=== PATIENT | male | born 1935 | race Caucasian/White ===

== ENCOUNTER 2023-09-02 17:00 | Inpatient (IN) | payer OTHER, MEDICAID ==
[~2023-09-02] VITALS: Ht 167.6 cm; Wt 63.5 kg
[2023-09-02 17:00] VITALS: BP_SYST 101; PULSE 70; RESP 18; TEMP 97.9; O2SAT 94
[~2023-09-02 17:00] MED LIST: cefTRIAXone 1 GM in D5W 50 ML IV SCH
[2023-09-02] MEDS: ASPIRIN 325 MG TABLET (ECOTRIN) PO ONE (17:10)
[2023-09-02 17:52] LABS: BASOPHILS # (AUTO) 0.1 K/uL (0.0-0.2); BASOPHILS % (AUTO) 0.7 % (0.0-2.0); EOSINOPHILS # (AUTO) 0.3 K/uL (0.0-0.4); EOSINOPHILS % (AUTO) 3.6 % (0.0-4.0); HEMATOCRIT 26.8 % (36-54); HEMOGLOBIN 8.5 g/dL (14.0-18.0); LYMPHOCYTES # (AUTO) 1.3 K/uL (1.0-5.5); LYMPHOCYTES % (AUTO) 18.7 % (20.5-51.5); MEAN CORPUSCULAR HEMOGLOBIN 27 pg (27-31); MEAN CORPUSCULAR HGB CONC 32 % (32-36); MEAN CORPUSCULAR VOLUME 85 fL (79.0-98.0); MONOCYTES # (AUTO) 0.6 K/uL (0.0-1.0); MONOCYTES % (AUTO) 8.2 % (1.7-9.3); NEUTROPHILS % (AUTO) 68.8 % (40.0-70.0); PLATELET COUNT (AUTO) 269 K/uL (130-430); RED BLOOD CELL COUNT(AUTO) 3.14 MIL/uL (4.2-6.2); RED CELL DISTRIBUTION WIDTH 17.6 % (9.0-15.0); WHITE BLOOD COUNT (AUTO) 7.2 K/uL (4.8-10.8)
[2023-09-02 18:11] LABS: ANION GAP 3 (5-15); CALCIUM 8.8 mg/dL (8.4-11.0); CARBON DIOXIDE 34 mmol/L (23-29); CHLORIDE 98 mmol/L (98-107); CREATININE 0.94 mg/dL (0.55-1.30); GLUCOSE 137 mg/dL (74-106); POTASSIUM 4.9 mmol/L (3.5-5.1); SODIUM SERUM 135 mmol/L (136-145); UREA NITROGEN, BLOOD 45 mg/dL (8-21)
[2023-09-02] MEDS ORDERED: ACETAMINOPHEN 325 MG TABLET PO PRN (19:45)
[2023-09-02] MEDS ORDERED: HYDROcodone/ACETAMIN 5-325 MG TAB (NORCO/ VICODIN) PO PRN (19:45)
[2023-09-02] MEDS ORDERED: ONDANSETRON HCL 4 MG/2 ML VIAL IVP PRN (19:45)
[2023-09-02] MEDS ORDERED: HYDROcodone/ACETAMIN 10-325 MG TAB PO PRN (19:45)
[2023-09-02] MEDS ORDERED: DAPA10TA7 PO (20:15)
[2023-09-02] MEDS ORDERED: FURO40TA5 PO (20:15)
[2023-09-02] MEDS ORDERED: ATOR20TA64 PO (20:15)
[2023-09-02] MEDS ORDERED: BICA50TA7 PO (20:15)
[2023-09-02] MEDS ORDERED: FINA5TAB11 PO (20:15)
[2023-09-02] MEDS ORDERED: NITR0.4T47 SL (20:15)
[2023-09-02] MEDS ORDERED: ENZA80TA PO (20:15)
[2023-09-02] MEDS ORDERED: HALOBETASOL TP (20:15)
[2023-09-02] MEDS ORDERED: SACU1TAB PO (20:15)
[2023-09-02] MEDS ORDERED: ASPI-1393 PO (20:15)
[2023-09-02] MEDS ORDERED: PARO-41 PO (20:15)
[2023-09-02] MEDS ORDERED: INSU100I56 SUBCUT (20:15)
[2023-09-02] MEDS ORDERED: FAMO20TA8 PO (20:15)
[2023-09-02] MEDS ORDERED: BISA10SU61 RC (20:22)
[2023-09-02] MEDS ORDERED: METO25TA6 PO (20:22)
[2023-09-02] MEDS ORDERED: ACET325T PO (20:22)
[2023-09-02] MEDS ORDERED: SACC250C3 PO (20:22)
[2023-09-02] MEDS ORDERED: LORA-259 PO (20:22)
[2023-09-02] MEDS ORDERED: SENN8.6T19 PO (20:22)
[2023-09-02] MEDS ORDERED: IPRA4AER INH (20:22)
[2023-09-02] MEDS ORDERED: DOCU-144 PO (20:22)
[2023-09-02] MEDS ORDERED: MOM PO (20:22)
[2023-09-02] MEDS ORDERED: ACET-73 PO (20:22)
[2023-09-02 20:28] VITALS: BP_SYST 112; PULSE 65; O2SAT 99
[2023-09-02] MEDS: FUROSEMIDE 40 MG/4 ML VIAL IVP ONE (20:52)
[2023-09-02] MEDS ORDERED: AZITHROMYCIN 500 MG in NS 250 ML IV SCH (21:00)
[2023-09-02] MEDS: FUROSEMIDE 40 MG/4 ML VIAL IVP SCH (21:00)
[2023-09-02] MEDS ORDERED: AZITHROMYCIN 500 MG/VIAL (ZITHROMAX) IV ONE ×2 (21:24→21:27)
[2023-09-02] MEDS: AZITHROMYCIN 500 MG in NS 250 ML IV SCH (21:57)
[2023-09-02] MEDS: MORPHINE 2 MG/ML INJ. SYRINGE IVP PRN (23:15)
[2023-09-02] MEDS ORDERED: LORazepam 1 MG TABLET PO PRN (23:15)
[2023-09-03] VITALS (11 sets, daily range): BP systolic 120–139; PULSE 70–79; RESP 19–22; TEMP 97.2–97.8; O2SAT 95–99
[2023-09-03 05:45] LABS: BASOPHILS % (AUTO) 0.7 % (0.0-2.0); EOSINOPHILS # (AUTO) 0.2 K/uL (0.0-0.4); EOSINOPHILS % (AUTO) 3.2 % (0.0-4.0); HEMOGLOBIN 8.1 g/dL (14.0-18.0); LYMPHOCYTES # (AUTO) 1.3 K/uL (1.0-5.5); LYMPHOCYTES % (AUTO) 20.6 % (20.5-51.5); MEAN CORPUSCULAR HEMOGLOBIN 27 pg (27-31); MEAN CORPUSCULAR HGB CONC 31 % (32-36); MEAN CORPUSCULAR VOLUME 87 fL (79.0-98.0); MONOCYTES # (AUTO) 0.6 K/uL (0.0-1.0); MONOCYTES % (AUTO) 9.1 % (1.7-9.3); NEUTROPHILS # (AUTO) 4.1 K/uL (1.8-7.7); NEUTROPHILS % (AUTO) 66.4 % (40.0-70.0); PLATELET COUNT (AUTO) 256 K/uL (130-430); RED BLOOD CELL COUNT(AUTO) 2.98 MIL/uL (4.2-6.2); RED CELL DISTRIBUTION WIDTH 18.1 % (9.0-15.0); WHITE BLOOD COUNT (AUTO) 6.1 K/uL (4.8-10.8)
[2023-09-03 06:14] LABS: ALANINE AMINOTRANSFERASE 11 U/L (12-78); ALBUMIN 2.6 g/dL (3.4-4.8); ANION GAP 7 (5-15); ASPARTATE AMINOTRANSFERASE 24 U/L (10-37); CALCIUM 8.8 mg/dL (8.4-11.0); CARBON DIOXIDE 33 mmol/L (23-29); CHLORIDE 98 mmol/L (98-107); CREATININE 0.75 mg/dL (0.55-1.30); GLUCOSE 120 mg/dL (74-106); POTASSIUM 5.7 mmol/L (3.5-5.1); SODIUM SERUM 138 mmol/L (136-145); TOTAL BILIRUBIN 0.5 mg/dL (0.0-1.0); TOTAL PROTEIN, SERUM 6.7 g/dL (6.4-8.3); UREA NITROGEN, BLOOD 46 mg/dL (8-21)
[2023-09-03] MEDS: cefTRIAXone 1 GM in D5W 50 ML IV SCH ×2 (09:17)
[2023-09-03] MEDS: ASPIRIN 81 MG TAB.CHEW PO SCH (09:18)
[2023-09-03] MEDS ORDERED: CARVEDILOL 6.25 MG TABLET (COREG) PO ONE (09:30)
[2023-09-03] MEDS ORDERED: NITROGLYCERIN 0.4 MG TAB.SUBL SL SCH (09:45)
[2023-09-03] MEDS ORDERED: SACUBITRIL/VALSARTAN 24 MG-26 MG 1 TABLET PO ONE (10:00)
[2023-09-03] MEDS ORDERED: METOPROLOL TARTRATE 25 MG TABLET PO ONE (10:00)
[2023-09-03] MEDS: ATORVASTATIN 20 MG TABLET PO ONE (10:58)
[2023-09-03] MEDS: FINASTERIDE 5 MG TABLET (PROSCAR) PO ONE (10:58)
[2023-09-03] MEDS: PARoxetine HCL 20 MG TABLET PO ONE (10:58)
[2023-09-03] MEDS: LOSARTAN POTASSIUM 50 MG TABLET (COZAAR) PO ONE (10:59)
[2023-09-03] MEDS: ALBUTEROL SULFATE 0.083% 2.5 MG/3 ML VIAL.NEB INH SCH (11:18)
[2023-09-03] MEDS: SACUBITRIL/VALSARTAN 24 MG-26 MG 1 TABLET PO ONE (11:56)
[2023-09-03 14:31] LABS: BILIRUBIN,URINE NEGATIVE (NEGATIVE); BLOOD, URINE 1+ (NEGATIVE); CLARITY/URINE SL CLOUDY (CLEAR); GLUCOSE,URINE NEGATIVE (NEGATIVE); KETONES,URINE NEGATIVE (NEGATIVE); LEUKOCYTE ESTERASE ,URINE 3+ (NEGATIVE); NITRITE, URINE NEGATIVE (NEGATIVE); PH,URINE 5.5 (5.0-8.0); PROTEIN URINE NEGATIVE (NEGATIVE); UROBILINOGEN,URINE 0.2 (0.2-1.0)
[2023-09-03 14:39] LABS: COLOR,URINE STRAW (YELLOW)
[2023-09-03 14:42] LABS: BACTERIA,URINE None Seen /HPF (None Seen); WBC,URINE 20-50 /HPF (0-3); YEAST,URINE Few /HPF (None Seen)
[2023-09-03] MEDS: SODIUM ZIRCONIUM CYCLOSILICATE 10 GM POWD.PACK PO ONE (19:14)
[2023-09-03] MEDS ORDERED: CARVEDILOL 6.25 MG TABLET (COREG) PO SCH (21:00)
[2023-09-03] MEDS: SACUBITRIL/VALSARTAN 24 MG-26 MG 1 TABLET PO SCH (21:11)
[2023-09-04] VITALS (13 sets, daily range): BP systolic 99–115; PULSE 72–88; RESP 16–20; TEMP 97.5–98.4; O2SAT 93–100
[2023-09-04 05:30] LABS: BASOPHILS % (AUTO) 0.5 % (0.0-2.0); EOSINOPHILS # (AUTO) 0.2 K/uL (0.0-0.4); EOSINOPHILS % (AUTO) 3.8 % (0.0-4.0); HEMATOCRIT 27.8 % (36-54); HEMOGLOBIN 8.7 g/dL (14.0-18.0); LYMPHOCYTES # (AUTO) 1.2 K/uL (1.0-5.5); LYMPHOCYTES % (AUTO) 19.7 % (20.5-51.5); MEAN CORPUSCULAR HEMOGLOBIN 27 pg (27-31); MEAN CORPUSCULAR HGB CONC 31 % (32-36); MEAN CORPUSCULAR VOLUME 87 fL (79.0-98.0); MONOCYTES # (AUTO) 0.5 K/uL (0.0-1.0); MONOCYTES % (AUTO) 8.7 % (1.7-9.3); NEUTROPHILS # (AUTO) 4.2 K/uL (1.8-7.7); NEUTROPHILS % (AUTO) 67.3 % (40.0-70.0); PLATELET COUNT (AUTO) 268 K/uL (130-430); RED CELL DISTRIBUTION WIDTH 17.5 % (9.0-15.0); WHITE BLOOD COUNT (AUTO) 6.3 K/uL (4.8-10.8)
[2023-09-04 05:57] LABS: ALANINE AMINOTRANSFERASE 8 U/L (12-78); ALBUMIN 2.5 g/dL (3.4-4.8); ANION GAP 7 (5-15); ASPARTATE AMINOTRANSFERASE 14 U/L (10-37); CARBON DIOXIDE 35 mmol/L (23-29); CHLORIDE 98 mmol/L (98-107); GLUCOSE 141 mg/dL (74-106); POTASSIUM 3.8 mmol/L (3.5-5.1); SODIUM SERUM 140 mmol/L (136-145); TOTAL BILIRUBIN 0.4 mg/dL (0.0-1.0); UREA NITROGEN, BLOOD 41 mg/dL (8-21)
[2023-09-04] MEDS: LOSARTAN POTASSIUM 50 MG TABLET (COZAAR) PO SCH (09:00)
[2023-09-04] MEDS ORDERED: METOPROLOL TARTRATE 25 MG TABLET PO SCH (09:00)
[2023-09-04] MEDS: ENOXAPARIN SODIUM 40 MG/0.4 ML SYRINGE SUBCUT SCH (10:20)
[2023-09-04] MEDS: PARoxetine HCL 20 MG TABLET PO SCH (10:21)
[2023-09-04] MEDS: ATORVASTATIN 20 MG TABLET PO SCH (10:21)
[2023-09-04] MEDS: FINASTERIDE 5 MG TABLET (PROSCAR) PO SCH (10:24)
[2023-09-04] MEDS: IPRATROPIUM BROM 0.5 MG/2.5 ML VIAL.NEB (ATROVENT) INH PRN (19:36)
[2023-09-05] VITALS (13 sets, daily range): BP systolic 101–123; PULSE 80–89; RESP 16–18; TEMP 96–97.8; O2SAT 93–99
[2023-09-05] MEDS: FUROSEMIDE 40 MG/4 ML VIAL IVP SCH (14:10)
[2023-09-05] MEDS ORDERED: metroNIDAZOLE 500 mg/NS 100 ML IV SCH (14:45)
[2023-09-05] MEDS: PIPERACILLIN/TAZO 3.375 GM in D5W 50 ML IV SCH (15:32)
[2023-09-06] VITALS (13 sets, daily range): BP systolic 102–111; PULSE 66–89; RESP 16–18; TEMP 96.7–98.5; O2SAT 94–100
[2023-09-06 06:55] LABS: BASOPHILS % (AUTO) 0.7 % (0.0-2.0); EOSINOPHILS # (AUTO) 0.4 K/uL (0.0-0.4); EOSINOPHILS % (AUTO) 7.9 % (0.0-4.0); HEMATOCRIT 26.3 % (36-54); HEMOGLOBIN 8.5 g/dL (14.0-18.0); LYMPHOCYTES # (AUTO) 1.2 K/uL (1.0-5.5); LYMPHOCYTES % (AUTO) 23.5 % (20.5-51.5); MEAN CORPUSCULAR HEMOGLOBIN 27 pg (27-31); MEAN CORPUSCULAR HGB CONC 32 % (32-36); MEAN CORPUSCULAR VOLUME 85 fL (79.0-98.0); MONOCYTES # (AUTO) 0.5 K/uL (0.0-1.0); MONOCYTES % (AUTO) 9.4 % (1.7-9.3); NEUTROPHILS # (AUTO) 2.9 K/uL (1.8-7.7); NEUTROPHILS % (AUTO) 58.5 % (40.0-70.0); PLATELET COUNT (AUTO) 282 K/uL (130-430); RED BLOOD CELL COUNT(AUTO) 3.09 MIL/uL (4.2-6.2); RED CELL DISTRIBUTION WIDTH 17.2 % (9.0-15.0); WHITE BLOOD COUNT (AUTO) 4.9 K/uL (4.8-10.8)
[2023-09-06 07:19] LABS: ALANINE AMINOTRANSFERASE 8 U/L (12-78); ALBUMIN 2.3 g/dL (3.4-4.8); ANION GAP 4 (5-15); ASPARTATE AMINOTRANSFERASE 14 U/L (10-37); CARBON DIOXIDE 38 mmol/L (23-29); CHLORIDE 97 mmol/L (98-107); CREATININE 0.76 mg/dL (0.55-1.30); GLUCOSE 103 mg/dL (74-106); POTASSIUM 3.4 mmol/L (3.5-5.1); SODIUM SERUM 139 mmol/L (136-145); TOTAL BILIRUBIN 0.5 mg/dL (0.0-1.0); TOTAL PROTEIN, SERUM 6.5 g/dL (6.4-8.3); UREA NITROGEN, BLOOD 29 mg/dL (8-21)
[2023-09-06] MEDS: VANCOMYCIN HCL 750 MG in NS 250 ML IV SCH (16:58)
[2023-09-07] VITALS (11 sets, daily range): BP systolic 91–116; PULSE 64–79; RESP 16–18; TEMP 97.9–98.8; O2SAT 93–100
[2023-09-07] MEDS: CARVEDILOL 3.125 MG TABLET (COREG) PO SCH (21:00)
[2023-09-07] MEDS: MILK OF MAGNESIA 30 ML UDC PO PRN (21:49)
[2023-09-07] MEDS: FUROSEMIDE 40 MG TABLET PO SCH (21:50)
[2023-09-08] VITALS (9 sets, daily range): BP systolic 98–121; PULSE 61–86; RESP 15–18; TEMP 97.7–98.5; O2SAT 92–96
[2023-09-08 05:13] LABS: BASOPHILS % (AUTO) 0.6 % (0.0-2.0); EOSINOPHILS # (AUTO) 0.5 K/uL (0.0-0.4); HEMATOCRIT 25.4 % (36-54); HEMOGLOBIN 8.1 g/dL (14.0-18.0); LYMPHOCYTES # (AUTO) 1.3 K/uL (1.0-5.5); LYMPHOCYTES % (AUTO) 21.2 % (20.5-51.5); MEAN CORPUSCULAR HEMOGLOBIN 27 pg (27-31); MEAN CORPUSCULAR HGB CONC 32 % (32-36); MEAN CORPUSCULAR VOLUME 85 fL (79.0-98.0); MONOCYTES # (AUTO) 0.5 K/uL (0.0-1.0); NEUTROPHILS # (AUTO) 3.7 K/uL (1.8-7.7); NEUTROPHILS % (AUTO) 61.2 % (40.0-70.0); PLATELET COUNT (AUTO) 284 K/uL (130-430); RED BLOOD CELL COUNT(AUTO) 2.98 MIL/uL (4.2-6.2); RED CELL DISTRIBUTION WIDTH 17.3 % (9.0-15.0); WHITE BLOOD COUNT (AUTO) 6.1 K/uL (4.8-10.8)
[2023-09-08 05:42] LABS: ANION GAP 5 (5-15); CALCIUM 9.1 mg/dL (8.4-11.0); CARBON DIOXIDE 35 mmol/L (23-29); CHLORIDE 98 mmol/L (98-107); CREATININE 0.79 mg/dL (0.55-1.30); GLUCOSE 136 mg/dL (74-106); POTASSIUM 4.2 mmol/L (3.5-5.1); SODIUM SERUM 138 mmol/L (136-145); UREA NITROGEN, BLOOD 32 mg/dL (8-21)
[2023-09-08] MEDS ORDERED: cefTRIAXone 1 GM in D5W 50 ML IV SCH (09:45)
[2023-09-08] MEDS: SULFAMETHOXAZOLE/TRIMETHOPR DS 1 TABLET PO ONE (10:30)
[2023-09-08] MEDS ORDERED: TORS20TA23 PO (10:57)
[2023-09-08] MEDS ORDERED: SULF1TAB47 PO (10:57)
[2023-09-08] MEDS ORDERED: SULFAMETHOXAZOLE/TRIMETHOPR DS 1 TABLET PO SCH (21:00)
== END 2023-09-08 16:45 | DRG 193 ==
LOC: SED 17:00 → STU 19:44 → SMU 09-05 20:18
PROVIDERS: ADMIT Family Medicine; ATTEND Family Medicine
DX: J18.9 Pneumonia, unspecified organism (principal); E43 Unspecified severe protein-calorie malnutrition; I50.43 Acute on chronic combined systolic (congestive) and diastolic (congestive) heart failure; J96.01 Acute respiratory failure with hypoxia; N39.0 Urinary tract infection, site not specified; J90 Pleural effusion, not elsewhere classified; I11.0 Hypertensive heart disease with heart failure; E11.9 Type 2 diabetes mellitus without complications; F03.90 Unspecified dementia, unspecified severity, without behavioral disturbance, psychotic disturbance, mood disturbance, and anxiety; D64.9 Anemia, unspecified; Z68.22 Body mass index [BMI] 22.0-22.9, adult; E87.5 Hyperkalemia; E78.5 Hyperlipidemia, unspecified; I25.5 Ischemic cardiomyopathy; I25.10 Atherosclerotic heart disease of native coronary artery without angina pectoris; Z95.1 Presence of aortocoronary bypass graft; Z95.0 Presence of cardiac pacemaker; Z74.01 Bed confinement status
CPT/HCPCS: 36415; 71045; 76604; 80048; 80053; 80202; 81000; 81001; 81015; 82948; 83037; 83880; 84484; 85025; 87040; 87081; 87086; 87186; 92610-GN; 93005; 93306; 94070; 94640; 94664; 94760; 96365; 96375; 97110-GP; 97116-GP; 97163-GP; 97530-GP; 99285; G0378; J0456; J0696; J1650; J1940; J2270; J2543; J7050; J7060

== ENCOUNTER 2023-10-28 14:59 | Inpatient (IN) | payer OTHER, MEDICAID ==
[~2023-10-28] VITALS: Ht 165.1 cm; Wt 54.0 kg
[2023-10-28] VITALS (7 sets, daily range): BP systolic 117–135; PULSE 61–82; RESP 18–20; TEMP 97.9–98.9; O2SAT 91–98
[~2023-10-28 14:59] MED LIST changes: +ACET-73 PO; +ACET325T PO; +ASPI-1393 PO; +ATOR20TA64 PO; +BICA50TA7 PO; +BISA10SU61 RC; +DAPA10TA7 PO; +DOCU-144 PO; +ENZA80TA PO; +FAMO20TA8 PO; +FINA5TAB11 PO; +HALOBETASOL TP; +INSU100I56 SUBCUT; +IPRA4AER INH; +LORA-259 PO; +METO25TA6 PO; +MOM PO; +NITR0.4T47 SL; +PARO-41 PO; +SACC250C3 PO; +SACU1TAB PO; +SENN8.6T19 PO; +SULF1TAB47 PO; +TORS20TA23 PO; -cefTRIAXone 1 GM in D5W 50 ML IV SCH
[2023-10-28] MEDS: NACL 0.9% 1,000 ML IV ONE (15:15)
[2023-10-28] MEDS: IPRATROPIUM/ALBUTEROL SULFATE 3 ML AMPUL.NEB (DUONEB) INH ONE (15:28)
[2023-10-28 15:32] LABS: ABG O2 SAT% ESTIMATE 97.6 % (94.0-100.0); BLOOD GAS BASE EXCESS 6.9 mmol/L (-3.0-3.0); BLOOD GAS HCO3 35.1 mmol/L (21.0-27.0); BLOOD GAS PH 7.312 (7.350-7.450); BLOOD GAS PO2 113.2 mmHg (75.0-100.0)
[2023-10-28 15:35] LABS: BLOOD GAS PCO2 70.9 mmHg (32.0-45.0)
[2023-10-28 16:03] LABS: BASOPHILS % (AUTO) 0.6 % (0.0-2.0); EOSINOPHILS # (AUTO) 0.3 K/uL (0.0-0.4); EOSINOPHILS % (AUTO) 3.6 % (0.0-4.0); HEMATOCRIT 33.5 % (36-54); HEMOGLOBIN 10.6 g/dL (14.0-18.0); LYMPHOCYTES # (AUTO) 2.1 K/uL (1.0-5.5); LYMPHOCYTES % (AUTO) 27.2 % (20.5-51.5); MEAN CORPUSCULAR HEMOGLOBIN 27 pg (27-31); MEAN CORPUSCULAR HGB CONC 32 % (32-36); MEAN CORPUSCULAR VOLUME 85 fL (79.0-98.0); MONOCYTES # (AUTO) 0.6 K/uL (0.0-1.0); MONOCYTES % (AUTO) 7.3 % (1.7-9.3); NEUTROPHILS # (AUTO) 4.8 K/uL (1.8-7.7); NEUTROPHILS % (AUTO) 61.3 % (40.0-70.0); PLATELET COUNT (AUTO) 319 K/uL (130-430); RED BLOOD CELL COUNT(AUTO) 3.93 MIL/uL (4.2-6.2); RED CELL DISTRIBUTION WIDTH 18.2 % (9.0-15.0); WHITE BLOOD COUNT (AUTO) 7.8 K/uL (4.8-10.8)
[2023-10-28] MEDS: DEXAMETHASONE SOD PHOSPHATE 10 MG/ML VIAL IVP ONE (16:07)
[2023-10-28 16:29] LABS: INR 1.1 (0.80-1.20); PROTHROMBIN TIME 11.3 SECS (9.5-12.5)
[2023-10-28] MEDS ORDERED: [UNRECOGNIZED DRUG - CODE] PO (16:30)
[2023-10-28] MEDS ORDERED: FERR325T30 PO (16:30)
[2023-10-28] MEDS ORDERED: FURO20TA4 PO (16:30)
[2023-10-28] MEDS ORDERED: LACT10SO6 PO (16:30)
[2023-10-28] MEDS ORDERED: METO2.5T2 PO (16:34)
[2023-10-28] MEDS ORDERED: SENN8.6T19 PO (16:34)
[2023-10-28 16:39] LABS: ALANINE AMINOTRANSFERASE 7 U/L (12-78); ALBUMIN 2.9 g/dL (3.4-4.8); ANION GAP 5 (5-15); ASPARTATE AMINOTRANSFERASE 17 U/L (10-37); BILIRUBIN,DIRECT 0.2 mg/dL (0.0-0.3); CALCIUM 9.4 mg/dL (8.4-11.0); CARBON DIOXIDE 34 mmol/L (23-29); CHLORIDE 99 mmol/L (98-107); CREATININE 1.01 mg/dL (0.55-1.30); GLUCOSE 182 mg/dL (74-106); POTASSIUM 4.2 mmol/L (3.5-5.1); SODIUM SERUM 138 mmol/L (136-145); TOTAL BILIRUBIN 0.5 mg/dL (0.0-1.0); TOTAL PROTEIN, SERUM 8.1 g/dL (6.4-8.3); UREA NITROGEN, BLOOD 34 mg/dL (8-21)
[2023-10-28 17:29] LABS: INFLUENZA TYPE A Negative (NEGATIVE); INFLUENZA TYPE B NEGATIVE (NEGATIVE)
[2023-10-28] MEDS ORDERED: PIPERACILLIN/TAZOBACTAM 3.375 GM/VIAL (ZOSYN) IV ONE (17:31)
[2023-10-28] MEDS: PIPERACILLIN/TAZO 3.375 GM in NS 50 ML IV ONE (17:43)
[2023-10-28] MEDS: FUROSEMIDE 20 MG/2 ML VIAL IVP ONE (17:44)
[2023-10-28 18:56] LABS: BILIRUBIN,URINE NEGATIVE (NEGATIVE); BLOOD, URINE NEGATIVE (NEGATIVE); GLUCOSE,URINE NEGATIVE (NEGATIVE); KETONES,URINE NEGATIVE (NEGATIVE); LEUKOCYTE ESTERASE ,URINE 1+ (NEGATIVE); NITRITE, URINE NEGATIVE (NEGATIVE); PH,URINE 5.5 (5.0-8.0); PROTEIN URINE NEGATIVE (NEGATIVE); UROBILINOGEN,URINE 0.2 (0.2-1.0)
[2023-10-28 19:18] LABS: CLARITY/URINE SLIGHTLY HAZY (CLEAR); COLOR,URINE STRAW (YELLOW)
[2023-10-28 19:19] LABS: RBC,URINE NONE SEEN /HPF (0-3)
[2023-10-28 19:20] LABS: BACTERIA,URINE FEW /HPF (None Seen); MUCUS,URINE None Seen /LPF (None Seen); URINE AMORPHOUS URATE 1+ /HPF (None Seen)
[2023-10-28] MEDS: LORazepam 2 MG/ML VIAL IVP PRN (19:49)
[2023-10-28] MEDS ORDERED: NITROGLYCERIN 0.4 MG TAB.SUBL SL PRN (23:45)
[2023-10-28] MEDS ORDERED: NALOXONE HCL 0.4 MG/ML AMP (NARCAN) IVP PRN ×2 (23:45)
[2023-10-28] MEDS ORDERED: GUAIFEN PO SCH (23:45)
[2023-10-28] MEDS ORDERED: [UNRECOGNIZED DRUG - OTHER] PO SCH (23:45)
[2023-10-28] MEDS ORDERED: DEXTROMETHORPHAN PO SCH (23:45)
[2023-10-28] MEDS ORDERED: LORazepam 1 MG TABLET PO PRN (23:45)
[2023-10-28] MEDS ORDERED: HYDROcodone/ACETAMIN 10-325 MG TAB PO PRN (23:45)
[2023-10-28] MEDS ORDERED: HYDROcodone/ACETAMIN 5-325 MG TAB (NORCO/ VICODIN) PO PRN (23:45)
[2023-10-28] MEDS ORDERED: ACETAMINOPHEN 325 MG TABLET PO PRN (23:45)
[2023-10-29] VITALS (17 sets, daily range): BP systolic 104–112; PULSE 62–99; RESP 20–22; TEMP 96.2–98.8; O2SAT 97–100
[2023-10-29] MEDS: D5/0.45 NS 1,000 ML IV SCH (01:43)
[2023-10-29] MEDS: PIPERACILLIN/TAZO 3.375/DEX-IS 50 ML IV SCH (01:51)
[2023-10-29] MEDS: PIPERACILLIN/TAZOBACTAM 3.375 GM/VIAL (ZOSYN) IV ONE (01:52)
[2023-10-29] MEDS: ALBUTEROL SULFATE 0.083% 2.5 MG/3 ML VIAL.NEB INH SCH (03:08)
[2023-10-29] MEDS: IPRATROPIUM BROM 0.5 MG/2.5 ML VIAL.NEB (ATROVENT) INH SCH (03:09)
[2023-10-29 05:41] LABS: HEMATOCRIT 30.6 % (36-54); HEMOGLOBIN 9.6 g/dL (14.0-18.0); LYMPHOCYTES # (AUTO) 0.8 K/uL (1.0-5.5); LYMPHOCYTES % (AUTO) 13.8 % (20.5-51.5); MEAN CORPUSCULAR HEMOGLOBIN 27 pg (27-31); MEAN CORPUSCULAR HGB CONC 31 % (32-36); MEAN CORPUSCULAR VOLUME 86 fL (79.0-98.0); MONOCYTES # (AUTO) 0.3 K/uL (0.0-1.0); MONOCYTES % (AUTO) 4.6 % (1.7-9.3); NEUTROPHILS # (AUTO) 4.5 K/uL (1.8-7.7); NEUTROPHILS % (AUTO) 81.6 % (40.0-70.0); PLATELET COUNT (AUTO) 259 K/uL (130-430); RED BLOOD CELL COUNT(AUTO) 3.57 MIL/uL (4.2-6.2); RED CELL DISTRIBUTION WIDTH 17.7 % (9.0-15.0); WHITE BLOOD COUNT (AUTO) 5.6 K/uL (4.8-10.8)
[2023-10-29 06:02] LABS: ANION GAP 2 (5-15); CALCIUM 9.2 mg/dL (8.4-11.0); CARBON DIOXIDE 36 mmol/L (23-29); CHLORIDE 101 mmol/L (98-107); CREATININE 0.93 mg/dL (0.55-1.30); GLUCOSE 183 mg/dL (74-106); SODIUM SERUM 139 mmol/L (136-145); UREA NITROGEN, BLOOD 33 mg/dL (8-21)
[2023-10-29] MEDS ORDERED: BISACODYL 10 MG/SUPPOSITORY RC PRN (08:15)
[2023-10-29] MEDS ORDERED: ENZALUTAMIDE PO SCH (09:00)
[2023-10-29] MEDS ORDERED: SACUBITRIL/VALSARTAN 24 MG-26 MG 1 TABLET PO SCH (09:00)
[2023-10-29] MEDS ORDERED: KETOROLAC TROMETHAMINE 10 MG TABLET (TORADOL) PO SCH (09:00)
[2023-10-29] MEDS ORDERED: HALOBETASOL TP SCH (09:00)
[2023-10-29] MEDS ORDERED: SACCHAROMYCES BOULARDII 250 MG CAPSULE (FLORASTOR) PO SCH (09:00)
[2023-10-29] MEDS ORDERED: DAPAGLIFLOZIN PROPANEDIOL PO SCH (09:00)
[2023-10-29] MEDS ORDERED: metOLazone 2.5 MG TABLET PO SCH (09:00)
[2023-10-29] MEDS ORDERED: BISACODYL 10 MG/SUPPOSITORY RC SCH (09:00)
[2023-10-29] MEDS ORDERED: METOPROLOL TARTRATE 25 MG TABLET PO SCH (09:00)
[2023-10-29] MEDS ORDERED: TORSEMIDE 10 MG PO SCH (09:00)
[2023-10-29] MEDS ORDERED: FUROSEMIDE 20 MG TABLET PO SCH (09:00)
[2023-10-29] MEDS: FUROSEMIDE 40 MG/4 ML VIAL IVP ONE (10:15)
[2023-10-29] MEDS: FINASTERIDE 5 MG TABLET (PROSCAR) PO SCH (10:24)
[2023-10-29] MEDS: LACTOBACILLUS RHAMNOSUS GG 1 CAP CAPSULE PO SCH (10:24)
[2023-10-29] MEDS: PARoxetine HCL 20 MG TABLET PO SCH (10:25)
[2023-10-29] MEDS: ASPIRIN 81 MG TABLET(ECOTRIN) PO SCH (10:25)
[2023-10-29] MEDS: FAMOTIDINE 20 MG TABLET PO SCH (10:25)
[2023-10-29] MEDS: FERROUS SULFATE 325 MG TABLET.DR PO SCH (10:25)
[2023-10-29] MEDS: LACTULOSE 20 GM/30 ML UDC PO SCH (10:26)
[2023-10-29] MEDS: DOCUSATE SODIUM 100 MG CAPSULE PO SCH (10:26)
[2023-10-29] MEDS: EMPAGLIFLOZIN 10 MG TABLET PO SCH (10:31)
[2023-10-29] MEDS: BICALUTAMIDE 50 MG TABLET PO SCH (10:32)
[2023-10-29 11:19] LABS: ABG O2 SAT% ESTIMATE 97.2 % (94.0-100.0); BLOOD GAS BASE EXCESS 9.1 mmol/L (-3.0-3.0); BLOOD GAS PH 7.338 (7.350-7.450); BLOOD GAS PO2 103.5 mmHg (75.0-100.0)
[2023-10-29 11:39] LABS: BLOOD GAS PCO2 70.5 mmHg (32.0-45.0)
[2023-10-29] MEDS: FUROSEMIDE 40 MG/4 ML VIAL IVP SCH (19:30)
[2023-10-29] MEDS ORDERED: SENNOSIDES 8.6 MG TABLET PO SCH (21:00)
[2023-10-29] MEDS: ENZALUTAMIDE 80 MG PO SCH (21:00)
[2023-10-29] MEDS: ATORVASTATIN 20 MG TABLET PO SCH (21:54)
[2023-10-29] MEDS: MILK OF MAGNESIA 30 ML UDC PO SCH (21:55)
[2023-10-29] MEDS: SENNOSIDES 8.6 MG TABLET PO SCH (23:20)
[2023-10-30] VITALS (15 sets, daily range): BP systolic 101–133; PULSE 73–86; RESP 16–20; TEMP 97.6–98.4; O2SAT 96–100
[2023-10-30 08:35] LABS: BASOPHILS % (AUTO) 0.3 % (0.0-2.0); EOSINOPHILS # (AUTO) 0.1 K/uL (0.0-0.4); EOSINOPHILS % (AUTO) 0.8 % (0.0-4.0); HEMATOCRIT 29.6 % (36-54); HEMOGLOBIN 9.1 g/dL (14.0-18.0); LYMPHOCYTES % (AUTO) 14.6 % (20.5-51.5); MEAN CORPUSCULAR HEMOGLOBIN 26 pg (27-31); MEAN CORPUSCULAR HGB CONC 31 % (32-36); MEAN CORPUSCULAR VOLUME 86 fL (79.0-98.0); MONOCYTES # (AUTO) 0.4 K/uL (0.0-1.0); MONOCYTES % (AUTO) 6.7 % (1.7-9.3); NEUTROPHILS # (AUTO) 5.2 K/uL (1.8-7.7); NEUTROPHILS % (AUTO) 77.6 % (40.0-70.0); PLATELET COUNT (AUTO) 247 K/uL (130-430); RED BLOOD CELL COUNT(AUTO) 3.45 MIL/uL (4.2-6.2); RED CELL DISTRIBUTION WIDTH 17.9 % (9.0-15.0); WHITE BLOOD COUNT (AUTO) 6.7 K/uL (4.8-10.8)
[2023-10-30 08:42] LABS: ERYTHROCYTE SEDIMENTATION RATE 68 MM/HR (0-15)
[2023-10-30 08:54] LABS: ALANINE AMINOTRANSFERASE 5 U/L (12-78); ALBUMIN 2.6 g/dL (3.4-4.8); ANION GAP 5 (5-15); ASPARTATE AMINOTRANSFERASE 11 U/L (10-37); CALCIUM 9.3 mg/dL (8.4-11.0); CARBON DIOXIDE 38 mmol/L (23-29); CHLORIDE 100 mmol/L (98-107); CREATININE 1.01 mg/dL (0.55-1.30); GLUCOSE 105 mg/dL (74-106); SODIUM SERUM 143 mmol/L (136-145); TOTAL BILIRUBIN 0.7 mg/dL (0.0-1.0); TOTAL PROTEIN, SERUM 7.2 g/dL (6.4-8.3); UREA NITROGEN, BLOOD 31 mg/dL (8-21)
[2023-10-30] MEDS: LANOLIN ALCOHOL/MO/W.PET/CERES 57 GM CREAM..G. TP SCH (09:53)
[2023-10-30] MEDS: POTASSIUM CHLORIDE 20 MEQ/PKT PACKET PO ONE ×2 (12:39→16:53)
[2023-10-30] MEDS: FUROSEMIDE 40 MG/4 ML VIAL IVP SCH (17:33)
[2023-10-31] VITALS (14 sets, daily range): BP systolic 115–126; PULSE 53–89; RESP 20–21; TEMP 97.3–98.6; O2SAT 96–100
[2023-10-31 05:08] LABS: ERYTHROCYTE SEDIMENTATION RATE 58 MM/HR (0-15)
[2023-10-31 05:24] LABS: BASOPHILS % (AUTO) 0.5 % (0.0-2.0); EOSINOPHILS # (AUTO) 0.2 K/uL (0.0-0.4); EOSINOPHILS % (AUTO) 2.3 % (0.0-4.0); HEMATOCRIT 32.4 % (36-54); HEMOGLOBIN 10.1 g/dL (14.0-18.0); LYMPHOCYTES # (AUTO) 1.3 K/uL (1.0-5.5); LYMPHOCYTES % (AUTO) 19.5 % (20.5-51.5); MEAN CORPUSCULAR HEMOGLOBIN 27 pg (27-31); MEAN CORPUSCULAR HGB CONC 31 % (32-36); MEAN CORPUSCULAR VOLUME 85 fL (79.0-98.0); MONOCYTES # (AUTO) 0.6 K/uL (0.0-1.0); MONOCYTES % (AUTO) 8.3 % (1.7-9.3); NEUTROPHILS # (AUTO) 4.7 K/uL (1.8-7.7); NEUTROPHILS % (AUTO) 69.4 % (40.0-70.0); PLATELET COUNT (AUTO) 245 K/uL (130-430); RED BLOOD CELL COUNT(AUTO) 3.82 MIL/uL (4.2-6.2); RED CELL DISTRIBUTION WIDTH 18.1 % (9.0-15.0); WHITE BLOOD COUNT (AUTO) 6.8 K/uL (4.8-10.8)
[2023-10-31 05:56] LABS: ANION GAP 5 (5-15); CALCIUM 9.1 mg/dL (8.4-11.0); CARBON DIOXIDE 38 mmol/L (23-29); CHLORIDE 98 mmol/L (98-107); CREATININE 0.92 mg/dL (0.55-1.30); GLUCOSE 95 mg/dL (74-106); POTASSIUM 3.2 mmol/L (3.5-5.1); SODIUM SERUM 141 mmol/L (136-145); UREA NITROGEN, BLOOD 24 mg/dL (8-21)
[2023-10-31] MEDS: LORazepam 2 MG/ML VIAL IVP PRN (10:55)
[2023-10-31] MEDS: POTASSIUM CHLORIDE 20 MEQ/PKT PACKET PO ONE (17:01)
[2023-11-01] VITALS (13 sets, daily range): BP systolic 108–118; PULSE 64–102; RESP 14–16; TEMP 97.3–98.7; O2SAT 94–100
[2023-11-01 06:54] LABS: BASOPHILS % (AUTO) 0.2 % (0.0-2.0); EOSINOPHILS # (AUTO) 0.3 K/uL (0.0-0.4); EOSINOPHILS % (AUTO) 3.6 % (0.0-4.0); HEMATOCRIT 32.5 % (36-54); HEMOGLOBIN 10.2 g/dL (14.0-18.0); LYMPHOCYTES # (AUTO) 1.3 K/uL (1.0-5.5); LYMPHOCYTES % (AUTO) 17.9 % (20.5-51.5); MEAN CORPUSCULAR HEMOGLOBIN 26 pg (27-31); MEAN CORPUSCULAR HGB CONC 31 % (32-36); MEAN CORPUSCULAR VOLUME 84 fL (79.0-98.0); MONOCYTES # (AUTO) 0.7 K/uL (0.0-1.0); MONOCYTES % (AUTO) 9.4 % (1.7-9.3); NEUTROPHILS # (AUTO) 4.9 K/uL (1.8-7.7); NEUTROPHILS % (AUTO) 68.9 % (40.0-70.0); PLATELET COUNT (AUTO) 250 K/uL (130-430); RED BLOOD CELL COUNT(AUTO) 3.87 MIL/uL (4.2-6.2); WHITE BLOOD COUNT (AUTO) 7.1 K/uL (4.8-10.8)
[2023-11-01 07:08] LABS: ANION GAP 6 (5-15); CALCIUM 8.8 mg/dL (8.4-11.0); CHLORIDE 95 mmol/L (98-107); CREATININE 0.96 mg/dL (0.55-1.30); GLUCOSE 92 mg/dL (74-106); SODIUM SERUM 144 mmol/L (136-145); UREA NITROGEN, BLOOD 23 mg/dL (8-21)
[2023-11-01 07:32] LABS: ERYTHROCYTE SEDIMENTATION RATE 79 MM/HR (0-15)
[2023-11-01 07:45] LABS: CARBON DIOXIDE 43 mmol/L (23-29); POTASSIUM 2.7 mmol/L (3.5-5.1)
[2023-11-01] MEDS: POTASSIUM CHLORIDE 40 MEQ, LIDOCAINE JECT 2% PF 100 MG 50 MG in NS 250 ML IV ONE (10:35)
[2023-11-01] MEDS: ONDANSETRON HCL 4 MG/2 ML VIAL IVP PRN (10:42)
[2023-11-01] MEDS ORDERED: D5/0.45 NS 1,000 ML IV SCH (11:45)
[2023-11-02] VITALS (16 sets, daily range): BP systolic 123–131; PULSE 62–101; RESP 16–18; TEMP 96.8–99.4; O2SAT 95–100
[2023-11-02 05:39] LABS: BASOPHILS % (AUTO) 0.4 % (0.0-2.0); EOSINOPHILS # (AUTO) 0.2 K/uL (0.0-0.4); EOSINOPHILS % (AUTO) 3.6 % (0.0-4.0); HEMATOCRIT 30.7 % (36-54); HEMOGLOBIN 9.5 g/dL (14.0-18.0); LYMPHOCYTES # (AUTO) 0.9 K/uL (1.0-5.5); LYMPHOCYTES % (AUTO) 14.3 % (20.5-51.5); MEAN CORPUSCULAR HEMOGLOBIN 26 pg (27-31); MEAN CORPUSCULAR HGB CONC 31 % (32-36); MEAN CORPUSCULAR VOLUME 85 fL (79.0-98.0); MONOCYTES # (AUTO) 0.6 K/uL (0.0-1.0); MONOCYTES % (AUTO) 8.5 % (1.7-9.3); NEUTROPHILS # (AUTO) 4.8 K/uL (1.8-7.7); NEUTROPHILS % (AUTO) 73.2 % (40.0-70.0); PLATELET COUNT (AUTO) 239 K/uL (130-430); RED CELL DISTRIBUTION WIDTH 18.1 % (9.0-15.0); WHITE BLOOD COUNT (AUTO) 6.6 K/uL (4.8-10.8)
[2023-11-02 05:45] LABS: ERYTHROCYTE SEDIMENTATION RATE 93 MM/HR (0-15)
[2023-11-02 06:11] LABS: ALANINE AMINOTRANSFERASE 13 U/L (12-78); ALBUMIN 2.4 g/dL (3.4-4.8); ANION GAP 5 (5-15); ASPARTATE AMINOTRANSFERASE 16 U/L (10-37); CHLORIDE 98 mmol/L (98-107); CREATININE 1.17 mg/dL (0.55-1.30); GLUCOSE 92 mg/dL (74-106); PHOSPHORUS 3.8 mg/dL (2.7-4.5); POTASSIUM 3.6 mmol/L (3.5-5.1); SODIUM SERUM 145 mmol/L (136-145); TOTAL BILIRUBIN 0.9 mg/dL (0.0-1.0); UREA NITROGEN, BLOOD 26 mg/dL (8-21)
[2023-11-02 06:46] LABS: CARBON DIOXIDE 42 mmol/L (23-29)
[2023-11-02] MEDS: FUROSEMIDE 40 MG/4 ML VIAL IVP SCH (18:06)
[2023-11-02] MEDS: MUPIROCIN 2% TOPICAL OINTMENT 22 GM TP SCH (21:00)
[2023-11-03] VITALS (18 sets, daily range): BP systolic 118–128; PULSE 61–86; RESP 15–21; TEMP 96.2–98.6; O2SAT 93–99
[2023-11-03 08:07] LABS: BASOPHILS # (AUTO) 0.1 K/uL (0.0-0.2); BASOPHILS % (AUTO) 0.7 % (0.0-2.0); EOSINOPHILS # (AUTO) 0.2 K/uL (0.0-0.4); EOSINOPHILS % (AUTO) 2.4 % (0.0-4.0); HEMATOCRIT 34.7 % (36-54); HEMOGLOBIN 10.6 g/dL (14.0-18.0); LYMPHOCYTES # (AUTO) 0.9 K/uL (1.0-5.5); LYMPHOCYTES % (AUTO) 10.3 % (20.5-51.5); MEAN CORPUSCULAR HEMOGLOBIN 27 pg (27-31); MEAN CORPUSCULAR HGB CONC 31 % (32-36); MEAN CORPUSCULAR VOLUME 88 fL (79.0-98.0); MONOCYTES # (AUTO) 0.8 K/uL (0.0-1.0); MONOCYTES % (AUTO) 8.9 % (1.7-9.3); NEUTROPHILS # (AUTO) 6.6 K/uL (1.8-7.7); NEUTROPHILS % (AUTO) 77.7 % (40.0-70.0); PLATELET COUNT (AUTO) 224 K/uL (130-430); RED BLOOD CELL COUNT(AUTO) 3.96 MIL/uL (4.2-6.2); RED CELL DISTRIBUTION WIDTH 18.4 % (9.0-15.0); WHITE BLOOD COUNT (AUTO) 8.5 K/uL (4.8-10.8)
[2023-11-03 08:37] LABS: ALANINE AMINOTRANSFERASE 6 U/L (12-78); ALBUMIN 2.5 g/dL (3.4-4.8); ANION GAP 7 (5-15); ASPARTATE AMINOTRANSFERASE 18 U/L (10-37); CALCIUM 9.3 mg/dL (8.4-11.0); CHLORIDE 97 mmol/L (98-107); CREATININE 1.76 mg/dL (0.55-1.30); GLUCOSE 107 mg/dL (74-106); POTASSIUM 3.6 mmol/L (3.5-5.1); SODIUM SERUM 146 mmol/L (136-145); TOTAL BILIRUBIN 0.9 mg/dL (0.0-1.0); TOTAL PROTEIN, SERUM 7.5 g/dL (6.4-8.3); UREA NITROGEN, BLOOD 39 mg/dL (8-21)
[2023-11-03 08:54] LABS: BLOOD GAS BASE EXCESS 5.4 mmol/L (-3.0-3.0); BLOOD GAS HCO3 33.7 mmol/L (21.0-27.0); BLOOD GAS PO2 104.1 mmHg (75.0-100.0)
[2023-11-03 08:57] LABS: CARBON DIOXIDE 42 mmol/L (23-29)
[2023-11-03 09:06] LABS: BLOOD GAS PCO2 70.5 mmHg (32.0-45.0); BLOOD GAS PH 7.297 (7.350-7.450)
[2023-11-03 17:32] LABS: ABG O2 SAT% ESTIMATE 96.4 % (94.0-100.0); BLOOD GAS BASE EXCESS 11.6 mmol/L (-3.0-3.0); BLOOD GAS HCO3 39.5 mmol/L (21.0-27.0); BLOOD GAS PH 7.357 (7.350-7.450); BLOOD GAS PO2 92.1 mmHg (75.0-100.0)
[2023-11-04] VITALS (15 sets, daily range): BP systolic 98–130; PULSE 64–105; RESP 15–24; TEMP 96.5–97.3; O2SAT 90–97
[2023-11-04 07:21] LABS: BASOPHILS % (AUTO) 0.6 % (0.0-2.0); EOSINOPHILS # (AUTO) 0.2 K/uL (0.0-0.4); EOSINOPHILS % (AUTO) 2.3 % (0.0-4.0); HEMATOCRIT 32.4 % (36-54); HEMOGLOBIN 10.1 g/dL (14.0-18.0); LYMPHOCYTES # (AUTO) 1.1 K/uL (1.0-5.5); LYMPHOCYTES % (AUTO) 14.5 % (20.5-51.5); MEAN CORPUSCULAR HEMOGLOBIN 27 pg (27-31); MEAN CORPUSCULAR HGB CONC 31 % (32-36); MEAN CORPUSCULAR VOLUME 86 fL (79.0-98.0); MONOCYTES # (AUTO) 0.6 K/uL (0.0-1.0); MONOCYTES % (AUTO) 7.6 % (1.7-9.3); NEUTROPHILS # (AUTO) 5.7 K/uL (1.8-7.7); PLATELET COUNT (AUTO) 228 K/uL (130-430); RED BLOOD CELL COUNT(AUTO) 3.77 MIL/uL (4.2-6.2); RED CELL DISTRIBUTION WIDTH 18.3 % (9.0-15.0); WHITE BLOOD COUNT (AUTO) 7.6 K/uL (4.8-10.8)
[2023-11-04 07:57] LABS: ALANINE AMINOTRANSFERASE 5 U/L (12-78); ALBUMIN 2.2 g/dL (3.4-4.8); ANION GAP 10 (5-15); ASPARTATE AMINOTRANSFERASE 16 U/L (10-37); CALCIUM 8.9 mg/dL (8.4-11.0); CARBON DIOXIDE 39 mmol/L (23-29); CHLORIDE 98 mmol/L (98-107); CREATININE 2.41 mg/dL (0.55-1.30); GLUCOSE 103 mg/dL (74-106); POTASSIUM 3.2 mmol/L (3.5-5.1); SODIUM SERUM 147 mmol/L (136-145); TOTAL PROTEIN, SERUM 7.2 g/dL (6.4-8.3); UREA NITROGEN, BLOOD 49 mg/dL (8-21)
[2023-11-04 07:58] LABS: BLOOD GAS BASE EXCESS 14.4 mmol/L (-3.0-3.0); BLOOD GAS HCO3 42.2 mmol/L (21.0-27.0); BLOOD GAS PH 7.386 (7.350-7.450)
[2023-11-04 08:01] LABS: ABG O2 SAT% ESTIMATE 80.1 % (94.0-100.0); BLOOD GAS PCO2 71.9 mmHg (32.0-45.0); BLOOD GAS PO2 46.8 mmHg (75.0-100.0)
[2023-11-04] MEDS ORDERED: NALOXONE HCL 0.4 MG/ML AMP (NARCAN) IVP PRN (15:30)
[2023-11-04] MEDS: MORPHINE 2 MG/ML INJ. SYRINGE IVP ONE (15:59)
[2023-11-04] MEDS: PIPERACILLIN/TAZO 3.375/DEX-IS 50 ML IV SCH (18:21)
[2023-11-05] VITALS (20 sets, daily range): BP systolic 104–131; PULSE 29–104; RESP 16–29; TEMP 97.4–98.6; O2SAT 91–95
[2023-11-05 05:48] LABS: BASOPHILS % (AUTO) 0.4 % (0.0-2.0); HEMOGLOBIN 10.5 g/dL (14.0-18.0); LYMPHOCYTES # (AUTO) 0.8 K/uL (1.0-5.5); LYMPHOCYTES % (AUTO) 8.1 % (20.5-51.5); MEAN CORPUSCULAR HEMOGLOBIN 27 pg (27-31); MEAN CORPUSCULAR HGB CONC 31 % (32-36); MEAN CORPUSCULAR VOLUME 87 fL (79.0-98.0); MONOCYTES # (AUTO) 0.8 K/uL (0.0-1.0); MONOCYTES % (AUTO) 7.6 % (1.7-9.3); NEUTROPHILS # (AUTO) 8.5 K/uL (1.8-7.7); NEUTROPHILS % (AUTO) 83.9 % (40.0-70.0); PLATELET COUNT (AUTO) 251 K/uL (130-430); RED BLOOD CELL COUNT(AUTO) 3.89 MIL/uL (4.2-6.2); RED CELL DISTRIBUTION WIDTH 18.6 % (9.0-15.0); WHITE BLOOD COUNT (AUTO) 10.1 K/uL (4.8-10.8)
[2023-11-05 06:13] LABS: ALANINE AMINOTRANSFERASE 10 U/L (12-78); ALBUMIN 2.4 g/dL (3.4-4.8); ANION GAP 15 (5-15); ASPARTATE AMINOTRANSFERASE 43 U/L (10-37); CALCIUM 8.8 mg/dL (8.4-11.0); CARBON DIOXIDE 37 mmol/L (23-29); CHLORIDE 97 mmol/L (98-107); CREATININE 3.51 mg/dL (0.55-1.30); GLUCOSE 150 mg/dL (74-106); POTASSIUM 3.4 mmol/L (3.5-5.1); SODIUM SERUM 149 mmol/L (136-145); TOTAL BILIRUBIN 0.8 mg/dL (0.0-1.0); TOTAL PROTEIN, SERUM 7.6 g/dL (6.4-8.3); UREA NITROGEN, BLOOD 66 mg/dL (8-21)
[2023-11-05 08:31] LABS: ABG O2 SAT% ESTIMATE 95.5 % (94.0-100.0); BLOOD GAS BASE EXCESS 9.9 mmol/L (-3.0-3.0); BLOOD GAS HCO3 38.4 mmol/L (21.0-27.0); BLOOD GAS PH 7.364 (7.350-7.450); BLOOD GAS PO2 83.4 mmHg (75.0-100.0)
[2023-11-05 08:45] LABS: BLOOD GAS PCO2 68.9 mmHg (32.0-45.0)
[2023-11-05] MEDS ORDERED: NALOXONE HCL 0.4 MG/ML AMP (NARCAN) IVP PRN (10:00)
[2023-11-05] MEDS: NS 500 ML IV ONE (10:10)
[2023-11-05] MEDS: MORPHINE 2 MG/ML INJ. SYRINGE IVP PRN (10:22)
[2023-11-05] MEDS ORDERED: DEXTROSE 50% JECT 50 ML DISP.SYRIN IVP PRN (13:15)
[2023-11-05] MEDS: D5/0.45 NS 1,000 ML IV SCH (13:15)
[2023-11-05] MEDS ORDERED: *TPN PER PHARMACY XX PRN (13:15)
[2023-11-05] MEDS: PANTOPRAZOLE SODIUM 40 MG/VIAL (PROTONIX) IVP ONE (15:51)
[2023-11-05] MEDS: ENOXAPARIN SODIUM 30 MG/0.3 ML SYRINGE SUBCUT ONE (15:51)
[2023-11-05] MEDS: INSULIN REGULAR, HUMAN 100 UNITS/ML, 3 ML VIAL (humuLIN R) SUBCUT PRN (21:00)
[2023-11-06] VITALS (16 sets, daily range): BP systolic 108–121; PULSE 67–99; RESP 16–20; TEMP 96.8–97.7; O2SAT 91–99
[2023-11-06] MEDS ORDERED: PIPERACILLIN/TAZO 3.375/DEX-IS 50 ML IV SCH (03:00)
[2023-11-06] MEDS: PIPERACILLIN/TAZO 3.375/DEX-IS 50 ML IV SCH (03:05)
[2023-11-06 05:32] LABS: BASOPHILS # (AUTO) 0.1 K/uL (0.0-0.2); BASOPHILS % (AUTO) 0.5 % (0.0-2.0); EOSINOPHILS % (AUTO) 0.1 % (0.0-4.0); HEMATOCRIT 32.4 % (36-54); HEMOGLOBIN 9.9 g/dL (14.0-18.0); LYMPHOCYTES # (AUTO) 1.1 K/uL (1.0-5.5); LYMPHOCYTES % (AUTO) 9.5 % (20.5-51.5); MEAN CORPUSCULAR HEMOGLOBIN 26 pg (27-31); MEAN CORPUSCULAR HGB CONC 31 % (32-36); MEAN CORPUSCULAR VOLUME 86 fL (79.0-98.0); MONOCYTES # (AUTO) 0.8 K/uL (0.0-1.0); NEUTROPHILS # (AUTO) 9.3 K/uL (1.8-7.7); NEUTROPHILS % (AUTO) 82.9 % (40.0-70.0); PLATELET COUNT (AUTO) 208 K/uL (130-430); RED BLOOD CELL COUNT(AUTO) 3.77 MIL/uL (4.2-6.2); RED CELL DISTRIBUTION WIDTH 18.3 % (9.0-15.0); WHITE BLOOD COUNT (AUTO) 11.2 K/uL (4.8-10.8)
[2023-11-06 05:52] LABS: ALBUMIN 2.1 g/dL (3.4-4.8); ANION GAP 14 (5-15); CALCIUM 8.2 mg/dL (8.4-11.0); CARBON DIOXIDE 38 mmol/L (23-29); CHLORIDE 96 mmol/L (98-107); CREATININE 4.57 mg/dL (0.55-1.30); GLUCOSE 161 mg/dL (74-106); PHOSPHORUS 5.4 mg/dL (2.7-4.5); SODIUM SERUM 148 mmol/L (136-145); TOTAL BILIRUBIN 0.7 mg/dL (0.0-1.0); TOTAL PROTEIN, SERUM 6.9 g/dL (6.4-8.3); TRIGLYCERIDES 131 mg/dL (30-150); UREA NITROGEN, BLOOD 85 mg/dL (8-21)
[2023-11-06 06:07] LABS: ALANINE AMINOTRANSFERASE 12 U/L (12-78); ASPARTATE AMINOTRANSFERASE 41 U/L (10-37)
[2023-11-06 06:46] LABS: POTASSIUM 2.6 mmol/L (3.5-5.1)
[2023-11-06] MEDS: POTASSIUM CHLORIDE 40 MEQ, LIDOCAINE JECT 2% PF 100 MG 50 MG in NS 250 ML IV ONE (09:58)
[2023-11-06] MEDS: PANTOPRAZOLE SODIUM 40 MG/VIAL (PROTONIX) IVP SCH (09:59)
[2023-11-06] MEDS: ENOXAPARIN SODIUM 30 MG/0.3 ML SYRINGE SUBCUT SCH (10:00)
[2023-11-06 10:52] LABS: ABG O2 SAT% ESTIMATE 96.4 % (94.0-100.0); BLOOD GAS BASE EXCESS 7.9 mmol/L (-3.0-3.0); BLOOD GAS PH 7.359 (7.350-7.450); BLOOD GAS PO2 91.1 mmHg (75.0-100.0)
[2023-11-06 10:53] LABS: BLOOD GAS PCO2 63.6 mmHg (32.0-45.0)
[2023-11-06] MEDS: BUMEX 1 MG/4 ML VIAL IVP ONE (17:43)
[2023-11-06 20:14] LABS: INR 1.3 (0.80-1.20); PROTHROMBIN TIME 13.3 SECS (9.5-12.5)
[2023-11-06] MEDS: MVI IV SCH (20:59)
[2023-11-06] MEDS: [UNRECOGNIZED DRUG - OTHER] IV SCH (20:59)
[2023-11-06] MEDS: POTASSIUM CHLORIDE IV SCH (20:59)
[2023-11-06] MEDS: TPN PERIPHERAL IV SCH (20:59)
[2023-11-06] MEDS: FAT EMULSIONS 250 ML IV SCH (20:59)
[2023-11-06] MEDS: TRACE ELEMENTS IV SCH (20:59)
[2023-11-06] MEDS: LORazepam 2 MG/ML VIAL IVP PRN (21:24)
[2023-11-07] VITALS (12 sets, daily range): BP systolic 101–116; PULSE 74–101; RESP 16–17; TEMP 96.9–98.3; O2SAT 90–97
[2023-11-07 05:59] LABS: BASOPHILS % (AUTO) 0.3 % (0.0-2.0); EOSINOPHILS # (AUTO) 0.1 K/uL (0.0-0.4); EOSINOPHILS % (AUTO) 0.7 % (0.0-4.0); HEMATOCRIT 29.9 % (36-54); HEMOGLOBIN 9.9 g/dL (14.0-18.0); LYMPHOCYTES # (AUTO) 1.1 K/uL (1.0-5.5); LYMPHOCYTES % (AUTO) 13.4 % (20.5-51.5); MEAN CORPUSCULAR HEMOGLOBIN 28 pg (27-31); MEAN CORPUSCULAR HGB CONC 33 % (32-36); MEAN CORPUSCULAR VOLUME 85 fL (79.0-98.0); MONOCYTES # (AUTO) 0.6 K/uL (0.0-1.0); NEUTROPHILS # (AUTO) 6.5 K/uL (1.8-7.7); NEUTROPHILS % (AUTO) 78.6 % (40.0-70.0); PLATELET COUNT (AUTO) 168 K/uL (130-430); RED BLOOD CELL COUNT(AUTO) 3.54 MIL/uL (4.2-6.2); RED CELL DISTRIBUTION WIDTH 18.4 % (9.0-15.0); WHITE BLOOD COUNT (AUTO) 8.3 K/uL (4.8-10.8)
[2023-11-07 06:22] LABS: ALANINE AMINOTRANSFERASE 12 U/L (12-78); ALBUMIN 1.9 g/dL (3.4-4.8); ANION GAP 13 (5-15); ASPARTATE AMINOTRANSFERASE 34 U/L (10-37); CALCIUM 8.6 mg/dL (8.4-11.0); CARBON DIOXIDE 36 mmol/L (23-29); CHLORIDE 97 mmol/L (98-107); CREATININE 5.09 mg/dL (0.55-1.30); GLUCOSE 193 mg/dL (74-106); PHOSPHORUS 4.2 mg/dL (2.7-4.5); POTASSIUM 3.4 mmol/L (3.5-5.1); SODIUM SERUM 146 mmol/L (136-145); TOTAL BILIRUBIN 0.6 mg/dL (0.0-1.0); TOTAL PROTEIN, SERUM 6.6 g/dL (6.4-8.3); UREA NITROGEN, BLOOD 94 mg/dL (8-21)
[2023-11-07] MEDS ORDERED: NALOXONE HCL 0.4 MG/ML AMP (NARCAN) IVP PRN (12:00)
[2023-11-07] MEDS: MORPHINE 2 MG/ML INJ. SYRINGE IVP SCH (12:17)
[2023-11-07] MEDS: MVI IV SCH (21:18)
[2023-11-07] MEDS: TRACE ELEMENTS IV SCH (21:18)
[2023-11-07] MEDS: [UNRECOGNIZED DRUG - OTHER] IV SCH (21:18)
[2023-11-07] MEDS: TPN PERIPHERAL IV SCH (21:18)
[2023-11-07] MEDS: POTASSIUM CHLORIDE IV SCH (21:18)
[2023-11-08] VITALS (12 sets, daily range): BP systolic 99–130; PULSE 69–93; RESP 16–20; TEMP 96.9–97.3; O2SAT 87–99
[2023-11-08 06:21] LABS: BASOPHILS % (AUTO) 0.4 % (0.0-2.0); EOSINOPHILS # (AUTO) 0.1 K/uL (0.0-0.4); EOSINOPHILS % (AUTO) 1.7 % (0.0-4.0); HEMATOCRIT 30.4 % (36-54); HEMOGLOBIN 9.5 g/dL (14.0-18.0); LYMPHOCYTES # (AUTO) 1.3 K/uL (1.0-5.5); LYMPHOCYTES % (AUTO) 16.2 % (20.5-51.5); MEAN CORPUSCULAR HEMOGLOBIN 26 pg (27-31); MEAN CORPUSCULAR HGB CONC 31 % (32-36); MEAN CORPUSCULAR VOLUME 85 fL (79.0-98.0); MONOCYTES # (AUTO) 0.8 K/uL (0.0-1.0); MONOCYTES % (AUTO) 10.2 % (1.7-9.3); NEUTROPHILS # (AUTO) 5.6 K/uL (1.8-7.7); NEUTROPHILS % (AUTO) 71.5 % (40.0-70.0); PLATELET COUNT (AUTO) 130 K/uL (130-430); RED BLOOD CELL COUNT(AUTO) 3.59 MIL/uL (4.2-6.2); WHITE BLOOD COUNT (AUTO) 7.9 K/uL (4.8-10.8)
[2023-11-08 07:08] LABS: ALANINE AMINOTRANSFERASE 16 U/L (12-78); ALBUMIN 1.9 g/dL (3.4-4.8); ANION GAP 12 (5-15); ASPARTATE AMINOTRANSFERASE 25 U/L (10-37); CALCIUM 8.8 mg/dL (8.4-11.0); CARBON DIOXIDE 34 mmol/L (23-29); CHLORIDE 94 mmol/L (98-107); CREATININE 5.73 mg/dL (0.55-1.30); GLUCOSE 138 mg/dL (74-106); POTASSIUM 3.9 mmol/L (3.5-5.1); SODIUM SERUM 140 mmol/L (136-145); TOTAL BILIRUBIN 0.6 mg/dL (0.0-1.0); TOTAL PROTEIN, SERUM 6.9 g/dL (6.4-8.3)
[2023-11-08 07:27] LABS: UREA NITROGEN, BLOOD 111 mg/dL (8-21)
[2023-11-08] MEDS ORDERED: TPN PERIPHERAL IV SCH (21:00)
[2023-11-08] MEDS ORDERED: [UNRECOGNIZED DRUG - OTHER] IV SCH (21:00)
[2023-11-08] MEDS ORDERED: MVI IV SCH (21:00)
[2023-11-08] MEDS ORDERED: POTASSIUM CHLORIDE IV SCH (21:00)
[2023-11-08] MEDS ORDERED: TRACE ELEMENTS IV SCH (21:00)
== END 2023-11-08 22:30 | DRG 871 ==
LOC: SED 14:59 → STU 17:59 → SMU 10-30 12:29
PROVIDERS: ADMIT Preventive Medicine Preventive Medicine/Occupational Environmental Medicine; ATTEND Specialist
PROC: 5A09357 Assistance with Respiratory Ventilation, Less than 24 Consecutive Hours, Continuous Positive Airway Pressure (ICD-10-PCS; 2023-10-28)
PROC: 5A09357 Assistance with Respiratory Ventilation, Less than 24 Consecutive Hours, Continuous Positive Airway Pressure (ICD-10-PCS; 2023-10-29)
PROC: 5A09357 Assistance with Respiratory Ventilation, Less than 24 Consecutive Hours, Continuous Positive Airway Pressure (ICD-10-PCS; 2023-11-01)
PROC: 5A09457 Assistance with Respiratory Ventilation, 24-96 Consecutive Hours, Continuous Positive Airway Pressure (ICD-10-PCS; 2023-11-03)
PROC: 0W993ZZ Drainage of Right Pleural Cavity, Percutaneous Approach (ICD-10-PCS; 2023-11-04)
PROC: 5A09357 Assistance with Respiratory Ventilation, Less than 24 Consecutive Hours, Continuous Positive Airway Pressure (ICD-10-PCS; 2023-11-05)
PROC: 5A09357 Assistance with Respiratory Ventilation, Less than 24 Consecutive Hours, Continuous Positive Airway Pressure (ICD-10-PCS; principal; 2023-11-06)
PROC: 02HV33Z Insertion of Infusion Device into Superior Vena Cava, Percutaneous Approach (ICD-10-PCS; 2023-11-06)
PROC: B548ZZA Ultrasonography of Superior Vena Cava, Guidance (ICD-10-PCS; 2023-11-06)
DX: A41.9 Sepsis, unspecified organism (principal); I50.23 Acute on chronic systolic (congestive) heart failure; J18.9 Pneumonia, unspecified organism; J96.22 Acute and chronic respiratory failure with hypercapnia; J96.21 Acute and chronic respiratory failure with hypoxia; J44.0 Chronic obstructive pulmonary disease with (acute) lower respiratory infection; J44.1 Chronic obstructive pulmonary disease with (acute) exacerbation; G93.49 Other encephalopathy; I13.0 Hypertensive heart and chronic kidney disease with heart failure and stage 1 through stage 4 chronic kidney disease, or unspecified chronic kidney disease; N17.9 Acute kidney failure, unspecified; E87.0 Hyperosmolality and hypernatremia; D64.9 Anemia, unspecified; Z20.822 Contact with and (suspected) exposure to COVID-19; E78.5 Hyperlipidemia, unspecified; E11.22 Type 2 diabetes mellitus with diabetic chronic kidney disease; N18.31 Chronic kidney disease, stage 3a; F03.90 Unspecified dementia, unspecified severity, without behavioral disturbance, psychotic disturbance, mood disturbance, and anxiety; E11.65 Type 2 diabetes mellitus with hyperglycemia; E88.09 Other disorders of plasma-protein metabolism, not elsewhere classified; K21.9 Gastro-esophageal reflux disease without esophagitis; E11.43 Type 2 diabetes mellitus with diabetic autonomic (poly)neuropathy; K31.84 Gastroparesis; E87.6 Hypokalemia; I25.10 Atherosclerotic heart disease of native coronary artery without angina pectoris; I25.5 Ischemic cardiomyopathy; K59.00 Constipation, unspecified; Z87.01 Personal history of pneumonia (recurrent); Z95.0 Presence of cardiac pacemaker; Z79.82 Long term (current) use of aspirin; Z79.899 Other long term (current) drug therapy; Z79.4 Long term (current) use of insulin; Z95.1 Presence of aortocoronary bypass graft
CPT/HCPCS: 32555; 36415; 36600; 71045; 76770; 80048; 80053; 80076; 81000; 81001; 81015; 82803; 82948; 83605; 83615; 83735; 83880; 84100; 84478; 84484; 85025; 85610; 85651; 85730; 87040; 87081; 87086; 92610-GN; 93005; 94070; 94640; 94660; 94760; 96379; 97110-GP; 97530-GP; 99285; G0378; J1100; J1650; J1815; J1940; J2060; J2270; J2405; J2543; J3480; J3490; J7050